=== PATIENT | male | born 1955 | race Caucasian/White ===

== ENCOUNTER 2023-11-18 16:21 | Day surgery (SDC) | payer MEDICARE ==
[2023-11-18] MEDS ORDERED: LIDOCAINE HCL 1% 50 MG/5 ML VL PF IJ ONE (16:22)
[2023-11-18] MEDS ORDERED: Sodium Chloride 0.9(Preservative Free) 10 ML IJ ONE (16:22)
[2023-11-18] MEDS ORDERED: Decadron 4 MG INJ IV ONE (16:22)
[2023-11-18] MEDS ORDERED: Lactated Ringers 1,000 ML IV ONE (17:04)
--- NOTE | 2023-11-18 18:48 | XRAY ---
Indication: Cervical STEFANO Intraoperative fluoroscopy provided for 25 seconds. 4 digital spot images submitted for interpretation demonstrates posterior needle tip projecting posterior to cervical thoracic junction. Small amount of contrast injected for needle tip placement. Correlate with intraoperative findings/report. Incidental incompletely visualized mid cervical fusion hardware
--- NOTE | 2023-11-19 08:50 | XRAY ---
25 seconds of fluoroscopy was used in surgery for a cervical STEFANO.
== END 2023-11-18 18:10 | disposition home or self-care (01) ==
LOC: SDC-PAIN 16:21
PROVIDERS: ATTEND Psychiatry & Neurology Pain Medicine
DX: M54.12 Radiculopathy, cervical region (principal)
CPT/HCPCS: 62321; 72040; 77003; J1100; J2001; Q9966